=== PATIENT | female | born 1985 | race Caucasian/White ===

== ENCOUNTER 2019-12-07 15:09 | Emergency (ER) | payer MEDICAID ==
[~2019-12-07] VITALS: Ht 170.2 cm; Wt 72.6 kg
--- NOTE | 2019-12-07 15:09 | NUR ---
BIB [facility] 59 C/O NAUSEA/VOMITING AND ABDOMINAL PAIN, USED FENTANYL AND METH 2 DAYS AGO, TO ER BED 11, HOOKED TO EXECUTIVE SOUS CHEF AND POX, CHANGED TO HOSP GOWN, WARM BLANKET PROVIDED, CAME IN W PERIPHERAL IV AT LAC 20G, PATENT. AOx3, BREATHING EVEN AND UNLABORED, AWAITING MD GREENWOOD.
--- NOTE | 2019-12-07 15:54 | NUR ---
DR CROWLEY AT BEDSIDE
[2019-12-07 16:13] LABS: BASOPHILS % (AUTO) 0.5 % (0.0-2.0); HEMATOCRIT 36 % (33-45); HEMOGLOBIN 11.6 g/dL (11.5-14.8); LYMPHOCYTES # (AUTO) 1.7 /CMM (0.8-4.8); LYMPHOCYTES % (AUTO) 17.8 % (20.0-44.0); MEAN CORPUSCULAR HGB CONC 33 g/dl (31.0-36.0); MEAN CORPUSCULAR VOLUME 82 fL (82-100); MONOCYTES # (AUTO) 0.1 /CMM (0.1-1.30); MONOCYTES % (AUTO) 1.6 % (2.0-12.0); NEUTROPHILS # (AUTO) 7.5 /CMM (1.8-8.9); NEUTROPHILS % (AUTO) 80.1 % (43.0-81.0); PLATELET COUNT (AUTO) 507 /CMM (150-450); RED BLOOD CELL COUNT(AUTO) 4.35 MIL/uL (4.0-5.2); WHITE BLOOD COUNT (AUTO) 9.3 K/uL (4.3-11.0)
[2019-12-07] MEDS ORDERED: ONDANSETRON HCL/PF 4 MG/2 ML VIAL ONE (16:15)
[2019-12-07 16:22] LABS: CREATININE 0.5 mg/dL (0.6-1.3); POTASSIUM 3.6 mmol/L (3.5-5.1)
[2019-12-07] MEDS: ONDANSETRON HCL/PF 4 MG/2 ML VIAL IVP ONE (16:23)
[2019-12-07] MEDS: IV NS 0.9% 1,000 ML BAG IV ONE (16:23)
[2019-12-07 16:29] LABS: ALBUMIN 3.3 g/dL (3.4-5.0); BILIRUBIN,TOTAL 0.4 mg/dL (0.2-1.0); TOTAL PROTEIN, SERUM 8.3 g/dL (6.4-8.2)
--- NOTE | 2019-12-07 19:06 | NUR ---
PATIENT ABLE TO TOLERATE FLUIDS. MD MADE AWARE
--- NOTE | 2019-12-07 19:37 | NUR ---
REPORT GIVEN TO STEFANY PEREIRA FOR GORDON
--- NOTE | 2019-12-07 21:52 | NUR ---
Patient discharged to home in stable condition. Written and verbal after care instructions given. Patient verbalizes understanding of instruction.IV removed. Catheter intact and site benign. Pressure and 4x4 applied to site. No bleeding noted. Pt ambulatory with a steady gait
[2019-12-07 21:53] VITALS: BP 138/75
== END 2019-12-07 22:05 | disposition home or self-care (01) ==
LOC: ER 15:10
DX: R11.2 Nausea with vomiting, unspecified (principal); F19.10 Other psychoactive substance abuse, uncomplicated; F15.10 Other stimulant abuse, uncomplicated; R10.84 Generalized abdominal pain; Z88.8 Allergy status to other drugs, medicaments and biological substances
CPT/HCPCS: 36415; 80048; 80076; 80307; 83690; 84702; 85025; 96361; 96374; 99285; J2405; J7030; G0480